=== PATIENT | male | born 1985 | race Caucasian/White ===

== ENCOUNTER 2023-02-21 13:50 | Emergency (ER) | payer MEDICAID, SELFPAY ==
--- NOTE | ~2023-02-21 | XR_ITS ---
EXAMINATION: XR CHEST CLINICAL INFORMATION: Chest pain COMPARISON: None available. TECHNIQUE: 2 views of the chest were obtained. FINDINGS: The cardiac and mediastinal contours are normal. The lung volumes are are low. The lungs are clear. No pleural effusion or pneumothorax. Bony structures are unremarkable. XR/XR chest 2V IMPRESSION: Low lung volumes. No evidence for acute disease in the chest.
--- NOTE | ~2023-02-21 | CT_ITS ---
EXAMINATION: CT ANGIOGRAM OF THE CHEST WITH AND WITHOUT CONTRAST (CT PULMONARY ANGIOGRAM FOR PE) CLINICAL INFORMATION: Reason for Exam Chest pain, syncope, R/O PE COMPARISON: Previous chest x-ray from earlier the same day TECHNIQUE: Prior to contrast administration, noncontrast localization images were obtained. Subsequently, multidetector volumetric imaging was performed from the thoracic inlet to below the diaphragms following the administration of 65 mL Omnipaque 350 intravenous contrast. No contrast reaction reported Sagittal, coronal, and MIP oblique sagittal reformatted images were obtained on the CT workstation, uploaded to PACS, and reviewed. This CT examination was performed using dose optimization techniques as appropriate, variously including the following: *Automated exposure control *Adjustment of mA and/or kV according to patient size (this includes techniques or standardized protocols for targeted exams where dose is matched to indication/reason for exam; i.e. extremities or head) *Use of iterative reconstruction technique Total exam dose-length product 557 mGy-cm FINDINGS: QUALITY OF STUDY/CONTRAST BOLUS: Satisfactory. PULMONARY ARTERIES: No pulmonary emboli. THORACIC AORTA: No aneurysm. LUNG: No focal consolidation, nodules or masses. PLEURA: No pleural effusion or pneumothorax. MEDIASTINUM: Normal heart size. No pericardial effusion. No hilar or mediastinal lymphadenopathy. No evidence of septal bowing or right heart strain. CORONARY ARTERY CALCIFICATION: None visualized on this study. CHEST WALL/AXILLA: No axillary or internal mammary lymphadenopathy. OSSEOUS STRUCTURES: No acute or suspicious osseous abnormality. UPPER ABDOMEN: Fatty liver No reflux of contrast into the hepatic veins to suggest elevated right heart pressures. CT/CT angio chest PE protocol IMPRESSION: No evidence of pulmonary embolism. VTE: negative
--- NOTE | ~2023-02-21 | CT_ITS ---
EXAMINATION: CT HEAD WITHOUT CONTRAST CLINICAL INFORMATION: Syncope COMPARISON: None available. TECHNIQUE: Contiguous axial imaging was performed from the skull base to vertex without intravenous administration of contrast. This CT examination was performed using dose optimization techniques as appropriate, variously including the following: *Automated exposure control *Adjustment of mA and/or kV according to patient size (this includes techniques or standardized protocols for targeted exams where dose is matched to indication/reason for exam; i.e. extremities or head) *Use of iterative reconstruction technique DLP: 774 mGy-cm FINDINGS: there is no evidence of an extra-axial collection. There is no evidence of intra-axial or extra-axial hemorrhage. The ventricles and extra-axial CSF spaces are appropriate. Person-white matter differentiation is normal. No mass, mass effect or infarct. No skull fracture. Visualized paranasal sinuses, mastoid air cells and middle ears are clear. CT/CT head/brain wo IV con IMPRESSION: Unremarkable exam.
--- NOTE | 2023-02-21 13:53 | ECG_ITS ---
Test Reason : CHEST PAIN Blood Pressure : / mmHG Vent. Rate : 080 BPM Atrial Rate : 080 BPM P-R Int : 138 ms QRS Dur : 086 ms QT Int : 350 ms P-R-T Axes : 022 011 016 degrees QTc Int : 403 ms Normal sinus rhythm Normal ECG No previous ECGs available Referred By: Jyoti Castellanos Electronically Signed By:HALI MARTINEZ MD
--- NOTE | 2023-02-21 13:54 | ED_ITS ---
HPI - Chest Pain General Chief Complaint: Altered Mental Status Stated Complaint: CHEST PRESSURE SOB Time Seen by Provider: 02/21/23 14:15 Source: patient Mode of arrival: EMS Limitations: no limitations History of Present Illness HPI narrative: 38-year-old male who presents emergency department for evaluation of chest pain and syncopal episode. The patient states that he woke up this morning at 06:30 hours and had left-sided chest pain. He describes the pain is a sharp, squeezing pain that lasts less than a minute. He states he has had multiple episodes throughout the day today. Patient states he has had similar episodes in the past but has not seen a doctor for these chest pains. 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 He states that he was working at the construction company but was not doing anything physical, who is just supervising the workers when his chest pain became more frequent and more severe. He decided to leave work early and drive home. While he was driving home he decided that he was then going to drive to the emergency department. He states this pain got worse and he had a thread puller. Patient states that in passed out. EMS reported to nursing staff that the patient was found asleep in his vehicle on the side of the road worried pulled over and called 911. Patient was woken to verbal stimuli. The patient denied fever, chills, sore throat cough. He states that he has been having chest pain throughout the day today and was feeling short of breath. He denied nausea, vomiting or diarrhea. Patient states he does have a history of diabetes mellitus type 2 but lost 48 lb over 2 years and no longer has to take medications. This is the patient's 1st visit to our emergency department. RME was reviewed by me. Related Data Allergies Allergy/AdvReac Type Severity Reaction Status Date / Time Unable to Assess Allergy Unverified 02/21/23 13:53 Review of Systems 2 Review of Systems: Yes all other systems are reviewed and are negative [facility] Past Medical History [facility] Narrative: Social history: The patient is and his Dawna is here in the emergency department with him. The patient denies tobacco use. He rarely drinks alcohol. He denies drug use. Social History Social History Smoked in Last 30 Days: No Use of substances other than those prescribed or required for medical reasons: No Advance Directives: No Physical Exam 2 Vital Signs: Vital Signs: Last Vital Signs Temp 98.3 F 02/21/23 14:08 Pulse 65 02/21/23 16:07 Resp 20 02/21/23 16:07 BP 146/89 H 02/21/23 16:07 Pulse Ox 100 02/21/23 16:07 O2 Del Method Room Air 02/21/23 16:07 BMI result Body Mass Index 31.3 Vital signs revealed an elevated blood pressure of 146/96 otherwise unremarkable. Exam General: Awake, alert in no distress, patient has intermittent sharp which causes him to push on a small area on the right side of chest. The pain lasts seconds, patient appears to be in distress while he has the pain and then the pain resolved. Patient had 1 episode where had the pain and that closed his eyes for brief normal and did not answer questions but then woke up. Head: Normocephalic, atraumatic EENT: PERRL, Lids normal, sclera normal, conjunctiva normal, nose normal , ears normal, throat without erythema or exudates Neck: Supple, no adenopathy, no trachea midline or C-spine tenderness Lung: breath sounds symmetric, no wheezing, rales or rhonchi Chest: symmetric movement, point tenderness over the left anterior chest over the costochondral joints Heart: regular rate and rhythm, normal S1, S2 no murmurs or rubs Abdomen: soft, non-tender, nondistended, normal bowel sounds Back: no vertebral tenderness, no CVAT Extremities: no deformities, moves all extremities symmetrically Skin: no rashes, no lesion, normal color and warmth Neuro: Awake, alert, oriented, normal speech, cranial nerves intact, moves all extremities symmetrically Psych: Pleasant, cooperative Course Course Course Narrative: This is an RME: Additional HPI, ROS, PE not included below will be deferred to primary provider. patient is a 38-year-old male who presents emergency department via EMS. Patient was driving himself to [facility], he pulled over to the side of the road and he called EMS. He was experiencing chest pressure and at 1 point wrist reported shortness of breath. Upon EMS arrival he was found to be asleep in the car only responsive to verbal stimuli. He had reported having pain for the past 5 hours. Reports a history of similar episode in the past a few years back which he never sought evaluation for. Medications Administered Discontinued Medications Generic Name Dose Route Start Last Admin Trade Name Kalie GARDINER Reason Stop Dose Admin Iohexol 65 ml 02/21/23 16:10 02/21/23 16:10 Iohexol 350 Mg/Ml 100 Ml Infus..Btl IV 02/21/23 16:11 65 ml ONCE ONE Administration Ketorolac Tromethamine 15 mg 02/21/23 14:49 02/21/23 15:07 Ketorolac Tromethamine 15 Mg/Ml Vial IVPUSH 02/21/23 14:50 15 mg ONCE STA Administration Medical Decision Making Medical Decision Making MDM Narrative: 38-year-old male with past medical history of diabetes mellitus type 2 resolved after losing 48 lb 2 years prior, who presents emergency department for evaluation of intermittent sharp, left anterior wall chest pain lasting less than a minute but multiple episodes throughout the day today. Pain started at 06:30 hours and is associated with shortness of breath. Patient had to leave work and 1 he was driving home he decided to go to [facility] Emergency Department but had to thread puller and then states that he does not have any memory of what happened. Paramedics reported that he called 911 and they found him sleeping in the car, he woke up with verbal stimuli only. You emergency department patient has had several intermittent episodes of left-sided chest pain which appeared to be very brief, sharp and caused him to have distress. Had 1 episode where during the painful part he closed his eyes and was unresponsive but then woke up. Following evaluation was ordered : CBC, CMP, urine drug screen, ethanol level, influenza, PT/INR, PTT, D-dimer, lipase, influenza, COVID-19, CT scan of the head, CT pulmonary angiogram PE protocol. Patient was treated with Toradol 15 mg IV. 16:56 Patient's laboratory evaluation was unremarkable except for an elevated glucose of 178, I did discuss this with the patient. Patient has not had any symptoms of diabetes such as frequency, increased thirst or change in vision I told him that he should follow-up with . discuss is elevated glucose. Patient's coags were normal. Troponin was below detectable limits. Twelve EKG was unremarkable. Patient's CT scan of the brain and CT pulmonary angiogram PE protocol were negative. Patient's symptoms are most likely secondary to costochondritis I believe that the pain may have caused him to have a vasovagal event causing syncope. Patient did get improvement with IV Toradol. Patient was advised to take Tylenol ibuprofen for pain. He was given printed and verbal instructions discharged home. Differential Diagnosis Differential Diagnoses: The differential diagnosis associated with the presentation includes Differential diagnosis includes but is not limited to myocardial infarction, myocardial ischemia, stroke, cerebral bleed, musculoskeletal pain, costochondritis, anxiety, anemia, electrolyte abnormalities, viral syndrome. Admission/Observation Consideration of admission/observation: Escalation of care including admission/observation considered Lab Data MDM Lab Attestation statement: I reviewed the patient's lab results. My interpretation patient's laboratory evaluation is as follows: CBC was normal. CMP was normal except for an elevated glucose of 178 and an elevated ALT of 58. Patient's CK was normal. Troponin was below detectable limits. D- dimer was below detectable limits. Coags were normal. Ethanol level was not detectable. 02/21/23 14:20 02/21/23 14:20 Labs: Lab Results 02/21/23 02/21/23 02/21/23 Range/Units 13:58 14:19 14:20 WBC 10.6 (4.8-10.8) X10*3/uL RBC 5.14 (4.60-5.80) X10*6/uL Hgb 14.9 (14.0-18.0) g/dl Hct 42.6 (42.0-52.0) % MCV 82.9 (80.0-98.0) fL MCH 29.0 (27.0-33.0) pg MCHC 35.0 (31.0-36.0) g/dl RDW 12.6 (11.0-16.0) % Plt Count 331 (160-400) X10*3/uL MPV 9.8 (9.4-12.4) fL Immature Gran % (Auto) 0.7 H (0.0-0.4) % Neut % (Auto) 60.3 (45-73) % Lymph % (Auto) 28.1 (20-40) % [place] % (Auto) 6.7 (2-11) % Eos % (Auto) 3.2 (0-4) % Baso % (Auto) 1.0 (0-2) % Lymph # (Auto) 3.0 (1.2-4.9) X10*3/uL [place] # (Auto) 0.7 (0.1-1.2) X10*3/uL Eos # (Auto) 0.3 (0.0-0.4) X10*3/uL Baso # (Auto) 0.1 (0.0-0.2) X10*3/uL Abs Immat Gran (auto) 0.07 H (0.00-0.03) X10*3/uL Absolute Neuts (auto) 6.4 (2.0-8.3) x10*3/uL Absolute Nucleated RBC 0.000 (0.0-0.012) X10*3/uL Nucleated RBC % (auto) 0.0 (0.0-0.2) /100WBC PT 13.2 (11.1-13.3) SEC INR 1.1 (0.9-1.1) APTT 28.3 (26.0-36.4) SEC D-Dimer High Sensitivty < 150 NG/ML Sodium 136 (135-145) mmol/L Potassium 3.8 (3.3-5.1) mmol/L Chloride 106 (96-108) mmol/L Carbon Dioxide 25 (22-29) mmol/L Anion Gap 9 L (12-20) BUN 11 (9-16) mg/dL Creatinine 0.84 (0.5-1.4) mg/dL Estim Creat Clear Calc 129.3 Estimated GFR > 60 POC Glucose 168 H (60-115) mg/dL Random Glucose 178 H (60-115) mg/dL Calcium 9.4 (8.4-10.2) mg/dL Total Bilirubin 0.6 (0.0-1.0) mg/dL AST 32 (5-37) U/L ALT 58 H (0-40) U/L Alkaline Phosphatase 63 (39-117) U/L Total Creatine Kinase 112 (38-174) U/L Troponin I High Sens < 2.7 (<3.5-35.0) ng/L Total Protein 7.4 (6.5-8.0) g/dL Albumin 4.5 (3.5-5.0) g/dL Lipase 23 (8-78) U/L Urine Opiates Screen (Not Detect) Urine Fentanyl Screen (Not Detect) Ur Barbiturates Screen (Not Detect) Ur Phencyclidine Scrn (Not Detect) Ur Amphetamines Screen (Not Detect) U Benzodiazepines Scrn (Not Detect) Urine Cocaine Screen (Not Detect) U Marijuana (THC) Screen (Not Detect) Ethyl Alcohol < 10 mg/dL COVID-19 (GONZÁLEZ) Negative (Negative) COVID-19 Clin Com See Note Influenza Type A (INEZ) Negative (Negative) Influenza Type B (INEZ) Negative (Negative) Influenza A & B Note See Note 02/21/23 Range/Units 16:19 WBC (4.8-10.8) X10*3/uL RBC (4.60-5.80) X10*6/uL Hgb (14.0-18.0) g/dl Hct (42.0-52.0) % MCV (80.0-98.0) fL MCH (27.0-33.0) pg MCHC (31.0-36.0) g/dl RDW (11.0-16.0) % Plt Count (160-400) X10*3/uL MPV (9.4-12.4) fL Immature Gran % (Auto) (0.0-0.4) % Neut % (Auto) (45-73) % Lymph % (Auto) (20-40) % [place] % (Auto) (2-11) % Eos % (Auto) (0-4) % Baso % (Auto) (0-2) % Lymph # (Auto) (1.2-4.9) X10*3/uL [place] # (Auto) (0.1-1.2) X10*3/uL Eos # (Auto) (0.0-0.4) X10*3/uL Baso # (Auto) (0.0-0.2) X10*3/uL Abs Immat Gran (auto) (0.00-0.03) X10*3/uL Absolute Neuts (auto) (2.0-8.3) x10*3/uL Absolute Nucleated RBC (0.0-0.012) X10*3/uL Nucleated RBC % (auto) (0.0-0.2) /100WBC PT (11.1-13.3) SEC INR (0.9-1.1) APTT (26.0-36.4) SEC D-Dimer High Sensitivty NG/ML Sodium (135-145) mmol/L Potassium (3.3-5.1) mmol/L Chloride (96-108) mmol/L Carbon Dioxide (22-29) mmol/L Anion Gap (12-20) BUN (9-16) mg/dL Creatinine (0.5-1.4) mg/dL Estim Creat Clear Calc Estimated GFR POC Glucose (60-115) mg/dL Random Glucose (60-115) mg/dL Calcium (8.4-10.2) mg/dL Total Bilirubin (0.0-1.0) mg/dL AST (5-37) U/L ALT (0-40) U/L Alkaline Phosphatase (39-117) U/L Total Creatine Kinase (38-174) U/L Troponin I High Sens (<3.5-35.0) ng/L Total Protein (6.5-8.0) g/dL Albumin (3.5-5.0) g/dL Lipase (8-78) U/L Urine Opiates Screen Not Detected (Not Detect) Urine Fentanyl Screen Not Detected (Not Detect) Ur Barbiturates Screen Not Detected (Not Detect) Ur Phencyclidine Scrn Not Detected (Not Detect) Ur Amphetamines Screen Not Detected (Not Detect) U Benzodiazepines Scrn Not Detected (Not Detect) Urine Cocaine Screen Not Detected (Not Detect) U Marijuana (THC) Screen Not Detected (Not Detect) Ethyl Alcohol mg/dL COVID-19 (GONZÁLEZ) (Negative) COVID-19 Clin Com Influenza Type A (INEZ) (Negative) Influenza Type B (INEZ) (Negative) Influenza A & B Note Independent Interpretation I performed an independent interpretation of an: EKG Interpretation: Independent interpretation patient's 12 lead EKG done at 13:57 hours is as follows: Normal sinus rhythm with a rate of 80, normal MT interval, QRS duration QTC interval, J-point elevation V2 and V3 with no acute ST segment elevation ST segment depression, no significant T-wave abnormalities, no PACs, no PVCs, no previous EKG for comparison. Radiology Impression Discussion of test interpretation with radiology: I have reviewed the radiologist's reading. Radiologist Impression: CT head/brain wo IV con IMPRESSION: Unremarkable exam. Dictated By: Tere Powers MD CT angio chest PE protocol IMPRESSION: No evidence of pulmonary embolism. VTE: negative Dictated By: Tere Powers MD Discharge Plan Discharge Clinical Impression: Acute costochondritis Syncope Qualifiers: Encounter type: initial encounter Patient Disposition: Home, Self-Care Instructions: Costochondritis (ED) Additional Instructions: Your blood work was normal except for an elevated glucose of 178, normal is 60- 100 but stress and pain can sometimes cause the glucose to get higher. If you start to get symptoms of high glucose such as increased thirst, peeing frequently or blurred vision then you may need to go back on medications for diabetes otherwise you should follow-up with your doctor to discuss monitoring your blood sugar and possible further treatment. The CT scan of your brain was normal. The CT pulmonary angiogram pulmonary embolism protocol of your chest was normal, there were no blood clots in your lungs or abnormalities of your lungs to explain the pain. There were no significant abnormalities noted of the muscles or joints of your chest. Your symptoms are consistent with inflammation of the joints of your chest, this is called costochondritis. This pain can come on suddenly and can be very severe. The treatment is to take anti-inflammatory pain medications. Take ibuprofen 200 mg pills, 2 pills every 6 hours as needed for pain or fever. Take Tylenol (acetaminophen) 500 mg pills, 2 pills every 6 hours as needed for pain or fever. Follow-up with your doctor in 2 days. Please return to the emergency department if your symptoms get worse or if you develop any symptoms that are concerning to you.
[2023-02-21 14:05] LABS: Glucose, Whole Blood 168 mg/dL (60-115)
[2023-02-21 14:08] VITALS: BP 132/88; PULSE 94; RESP 20; TEMP 36.8; O2SAT 99; BMI 31.3
[2023-02-21 14:32] LABS: MANUAL DIFF FLAG NO
[2023-02-21 14:35] LABS: Basophils Absolute Auto 0.1 X10*3/uL (0.0-0.2); Eosinophils Absolute Auto 0.3 X10*3/uL (0.0-0.4); Eosinophils Percent Auto 3.2 % (0-4); Hematocrit 42.6 % (42.0-52.0); Hemoglobin 14.9 g/dl (14.0-18.0); Imm Gran Abs Auto 0.07 X10*3/uL (0.00-0.03); Imm Gran Pct Auto 0.7 % (0.0-0.4); Lymphocytes Percent Auto 28.1 % (20-40); Mean Corpuscular Volume 82.9 fL (80.0-98.0); Mean Platelet Volume 9.8 fL (9.4-12.4); Monocytes Absolute Auto 0.7 X10*3/uL (0.1-1.2); Monocytes Percent Auto 6.7 % (2-11); Neutrophils Absolute Auto 6.4 x10*3/uL (2.0-8.3); Neutrophils Percent Auto 60.3 % (45-73); Platelet Count 331 X10*3/uL (160-400); Red Blood Count 5.14 X10*6/uL (4.60-5.80); Red Cell Distribution Width 12.6 % (11.0-16.0); White Blood Count 10.6 X10*3/uL (4.8-10.8)
[2023-02-21 14:42] LABS: INTERNATIONAL NORM RATIO 1.1 (0.9-1.1); Prothrombin Time 13.2 SEC (11.1-13.3)
[2023-02-21 14:43] VITALS: BP 146/96; PULSE 83; RESP 18; O2SAT 97
--- NOTE | 2023-02-21 14:45 | PC.NURSE ---
pt is alert and oriented, skin pwd, respirations even and unlabored, pt reports waking up to go to work and around 0630 started having midsternal to left sided chest pain that feels like its squeezing that gets worse with deep inspirations/movement pt went to work then decided to come back home because of the pain on the way home pulled over to the side do to the pain-was found to be not responding to any surroundings. pt seems to g=have these episodes while getting his bloods drawn and another staring out episode while this rn and the md at bedside-lasted about 5 seconds then right back to baseline. ns on the monitor
[2023-02-21 14:47] LABS: IDNOW Serial# BCCEAD1C; Influenza A Negative (Negative); Influenza B2 Negative (Negative)
[2023-02-21 14:47] LABS: COVID-19 Test Negative (Negative); IDNOW Serial# 08D9AD1C
[2023-02-21 14:57] LABS: Troponin-I High Sensitivity < 2.7 ng/L (<3.5-35.0)
[2023-02-21 14:58] LABS: Alanine Aminotransferase 58 U/L (0-40); Albumin Level 4.5 g/dL (3.5-5.0); Alkaline Phosphatase 63 U/L (39-117); Anion Gap 9 (12-20); Aspartate Amino Transferase 32 U/L (5-37); Bilirubin Total 0.6 mg/dL (0.0-1.0); Blood Urea Nitrogen 11 mg/dL (9-16); Calcium 9.4 mg/dL (8.4-10.2); Carbon Dioxide 25 mmol/L (22-29); Chloride 106 mmol/L (96-108); Creatinine Clr Calc Pharmacy 129.3; Estimated Glomerular Filt Rate > 60; Ethanol < 10 mg/dL; Glucose Random 178 mg/dL (60-115); Potassium 3.8 mmol/L (3.3-5.1); Sodium 136 mmol/L (135-145); Total Protein 7.4 g/dL (6.5-8.0)
[2023-02-21] MEDS: Ketorolac Tromethamine 15 MG/ML VIAL IVPUSH (15:07)
[2023-02-21 15:29] LABS: Partial Thromboplastin Time 28.3 SEC (26.0-36.4)
[2023-02-21 15:30] LABS: D Dimer High Sensitivity < 150 NG/ML
[2023-02-21 15:39] LABS: Lipase 23 U/L (8-78)
[2023-02-21 16:07] VITALS: BP 146/89; PULSE 65; RESP 20; O2SAT 100
[2023-02-21] MEDS: iohexoL 350 MG/ML 100 ML INFUS..BTL 65 ML IV (16:10)
[2023-02-21 16:34] LABS: Amphetamine Screen Urine Not Detected (Not Detect); Barbiturates, Urine Not Detected (Not Detect); Benzodiazepines Screen Urine Not Detected (Not Detect); Cannabinoid Screen Urine Not Detected (Not Detect); Cocaine Screen Urine Not Detected (Not Detect); Fentanyl, urine Not Detected (Not Detect); Opiate Screen Urine Not Detected (Not Detect); Phencyclidine Screen Urine Not Detected (Not Detect)
--- NOTE | 2023-02-21 18:22 | PC.NURSE ---
unable to print d/c paperwork at this time, pt received down time d/c instructions
== END 2023-02-21 18:23 | disposition home or self-care (01) ==
PROVIDERS: Nurse Practitioner Family; Emergency Provider Emergency Medicine Emergency Medical Services
DX: M94.0 Chondrocostal junction syndrome [Tietze] (principal); R07.89 Other chest pain; R55 Syncope and collapse; R06.02 Shortness of breath; E11.9 Type 2 diabetes mellitus without complications; Z11.52 Encounter for screening for COVID-19; Z20.822 Contact with and (suspected) exposure to COVID-19; Z79.899 Other long term (current) drug therapy
CPT/HCPCS: 70450; 71046; 71275; 80053; 80307; 82550; 82947; 83690; 84484; 85025; 85379; 85610; 85730; 87502; 87635; 93005; 96374; 99285; J1885; Q9967